=== PATIENT | female | born 1990 | race African-American/Black ===

== ENCOUNTER 2016-07-29 18:16 | Emergency (ER) | payer MEDICAID ==
[~2016-07-29] VITALS: Ht 170.2 cm; Wt 84.0 kg
[2016-07-29 21:40] VITALS: BP 126/79
== END 2016-07-29 21:50 | disposition home or self-care (01) ==
LOC: ER 18:17
DX: J30.81 Allergic rhinitis due to animal (cat) (dog) hair and dander (principal); L25.9 Unspecified contact dermatitis, unspecified cause; J45.909 Unspecified asthma, uncomplicated; I10 Essential (primary) hypertension; F17.210 Nicotine dependence, cigarettes, uncomplicated; Z88.5 Allergy status to narcotic agent
CPT/HCPCS: 99283

== ENCOUNTER 2017-06-16 07:49 | Emergency (ER) | payer MEDICAID ==
[~2017-06-16] VITALS: Ht 172.7 cm; Wt 82.0 kg
[2017-06-16] MEDS ORDERED: KETOROLAC 30MG/ML VIAL IV STA (09:12)
[2017-06-16] MEDS ORDERED: ONDANSETRON HCL 4MG/2ML VIAL IV STA (09:12)
[2017-06-16] MEDS ORDERED: SODIUM CHLORIDE 0.9% 1,000 ML IV ONE (09:12)
[2017-06-16 10:09] LABS: KETONES URINE NEGATIVE (NEGATIVE); LEUKOCYTE ESTERASE URINE 3+ (NEGATIVE); NITRITE URINE NEGATIVE (NEGATIVE); OCCULT BLOOD URINE 1+ (NEGATIVE); PROTEIN URINE 1+ (NEGATIVE); SPECIFIC GRAVITY URINE 1.011 (1.005-1.030)
[2017-06-16 10:10] LABS: COLOR URINE YELLOW (YELLOW)
[2017-06-16 10:11] LABS: CLARITY URINE HAZY (CLEAR)
[2017-06-16 11:09] LABS: BASOPHILS % 0.3 % (0.0-2.0); EOSINOPHILS % 0.4 % (0.0-5.0); HEMATOCRIT. 36.5 % (36.0-48.0); HEMOGLOBIN. 12.6 g/dL (12.0-16.0); LYMPHOCYTES % 8.2 % (20.0-50.0); MEAN CORPUSCULAR VOLUME 75.3 fL (81.0-99.0); MEAN PLATELET VOLUME 10.1 fl (7.4-10.4); MONOCYTES % 9.1 % (2.0-8.0); PLATELET 177 x1000/uL (130-400); RED BLOOD CELL COUNT 4.85 mill/uL (4.2-5.4); RED CELL DISTRIBUTION WIDTH 14.1 % (11.6-14.6)
[2017-06-16 11:12] LABS: PROTHROMBIN TIME 10.3 sec (9.4-11.6)
[2017-06-16 11:21] LABS: CHLORIDE 107 mEq/L (98-107)
[2017-06-16] MEDS ORDERED: METRONIDAZOLE 500MG TABLET PO ONE (13:30)
[2017-06-16] MEDS ORDERED: CEFTRIAXONE SODIUM 250 MG/VIAL IM ONE (13:30)
[2017-06-16] MEDS ORDERED: DOXYCYCLINE HYCLATE 100MG CAPSULE PO ONE (13:30)
[2017-06-16 13:50] VITALS: BP 130/85
[2017-06-16] MEDS ORDERED: IOHEXOL-300 100 ML BOTTLE ONE (14:57)
[2017-06-19 04:17] LABS: CHLAMYDIA TRACHOMATIS NAA Positive (Negative); NEISSERIA GONORRHOEAE NAA Negative (Negative)
== END 2017-06-16 13:54 | disposition home or self-care (01) ==
LOC: ER 08:14
DX: N73.9 Female pelvic inflammatory disease, unspecified (principal); Z20.2 Contact with and (suspected) exposure to infections with a predominantly sexual mode of transmission; R11.2 Nausea with vomiting, unspecified; K80.20 Calculus of gallbladder without cholecystitis without obstruction; J45.909 Unspecified asthma, uncomplicated; I10 Essential (primary) hypertension; Z88.5 Allergy status to narcotic agent
CPT/HCPCS: 36415; 74177; 80053; 81001; 81025; 83690; 85025; 85610; 87077; 87086; 87186; 87210; 87491; 87591; 96361; 96372; 96374; 96375; 99285; J0696; J1885; J2405; J7030; Q9967; Z7610

== ENCOUNTER 2018-10-19 17:02 | Emergency (ER) | payer MEDICAID, OTHER ==
[~2018-10-19] VITALS: Ht 170.2 cm; Wt 96.0 kg
[2018-10-19] MEDS ORDERED: SODIUM CHLORIDE 0.9% 1,000 ML IV ONE (17:46)
[2018-10-19 17:57] LABS: CLARITY URINE CLOUDY (CLEAR); COLOR URINE YELLOW (YELLOW); KETONES URINE NEGATIVE (NEGATIVE); LEUKOCYTE ESTERASE URINE 1+ (NEGATIVE); NITRITE URINE NEGATIVE (NEGATIVE); OCCULT BLOOD URINE NEGATIVE (NEGATIVE); PROTEIN URINE NEGATIVE (NEGATIVE); SPECIFIC GRAVITY URINE 1.021 (1.005-1.030); UROBILINOGEN URINE 0.2 E.U./dL (0.2-1.0)
[2018-10-19 18:13] LABS: CHLORIDE 108 mEq/L (98-107); PARTIAL THROMBOPLASTIN TIME 23.6 sec (23.4-31.0); PROTHROMBIN TIME 10.5 sec (9.6-11.0)
[2018-10-19 18:14] LABS: BASOPHILS % 0.6 % (0.0-2.0); EOSINOPHILS % 4.8 % (0.0-5.0); HEMATOCRIT. 36.6 % (36.0-48.0); HEMOGLOBIN. 12.9 g/dL (12.0-16.0); LYMPHOCYTES % 38.5 % (20.0-50.0); MEAN CORPUSCULAR HEMOGLOBIN 27.1 pg (28.0-32.0); MEAN PLATELET VOLUME 9.8 fl (7.4-10.4); MONOCYTES % 6.9 % (2.0-8.0); NEUTROPHILS % 49.2 % (40.0-76.0); PLATELET 214 x1000/uL (130-400); RED BLOOD CELL COUNT 4.75 mill/uL (4.2-5.4)
[2018-10-19 18:15] LABS: HCG SCREEN NEGATIVE
[2018-10-19 18:24] LABS: B-HCG QUANTITATIVE < 1 mIU/mL (<3)
[2018-10-19] MEDS ORDERED: KETOROLAC 30MG/ML VIAL IV ONE (19:15)
[2018-10-19 21:39] VITALS: BP 132/82
[2018-10-19] MEDS ORDERED: IOHEXOL-300 100 ML BOTTLE ONE (21:54)
[2018-10-20 09:36] LABS: *AMPHETAMINES SCREEN URINE NEGATIVE (NEGATIVE); *BARBITURATES SCREEN URINE NEGATIVE (NEGATIVE); *BENZODIAZEPINES SCREEN URINE NEGATIVE (NEGATIVE); *COCAINE SCREEN URINE NEGATIVE (NEGATIVE); METHADONE URINE SCREEN NEGATIVE (NEGATIVE); OPIATES URINE SCREEN NEGATIVE (NEGATIVE); PHENCYCLIDINE URINE SCREEN NEGATIVE (NEGATIVE)
[2018-10-20 09:39] LABS: CANNABINOID URINE SCREEN PRESUMTIVE POSITIVE (NEGATIVE)
== END 2018-10-19 22:07 | disposition home or self-care (01) ==
LOC: ER 17:02
DX: R10.9 Unspecified abdominal pain (principal); I10 Essential (primary) hypertension; R31.9 Hematuria, unspecified; R39.15 Urgency of urination; R30.0 Dysuria; J45.909 Unspecified asthma, uncomplicated; R56.9 Unspecified convulsions
CPT/HCPCS: 36415; 74177; 76830; 76856; 80053; 80305; 81003; 81025; 84702; 84703; 85025; 85610; 85730; 86850; 86900; 86901; 99284; J7030; Q9967; Z7610

== ENCOUNTER 2018-11-11 12:53 | Emergency (ER) | payer OTHER ==
[~2018-11-11] VITALS: Ht 170.2 cm; Wt 86.0 kg
[2018-11-11] MEDS ORDERED: BACLOFEN 10MG TABLET PO ONE (15:30)
[2018-11-11] MEDS ORDERED: KETOROLAC 60MG/2ML VIAL IM ONE (15:30)
[2018-11-11] MEDS ORDERED: ACETAMINOPHEN 325MG TABLET PO ONE (15:30)
[2018-11-11 16:30] VITALS: BP 139/92
== END 2018-11-11 17:10 | disposition home or self-care (01) ==
LOC: ER 12:53
DX: M54.5 Low back pain (principal); J45.909 Unspecified asthma, uncomplicated; I10 Essential (primary) hypertension; G40.909 Epilepsy, unspecified, not intractable, without status epilepticus; Z98.890 Other specified postprocedural states; Z88.5 Allergy status to narcotic agent
CPT/HCPCS: 81025; 96372; 99283; J1885

== ENCOUNTER 2020-04-25 11:07 | Emergency (ER) | payer MEDICAID, OTHER ==
[~2020-04-25] VITALS: Ht 170.2 cm; Wt 145.0 kg
[2020-04-25] MEDS ORDERED: OXYMETAZOLINE HCL NASAL SPRAY 15ML BOTHNSTRLS SCH (12:15)
[2020-04-25 13:15] VITALS: BP 131/89
== END 2020-04-25 13:36 | disposition home or self-care (01) ==
LOC: ER 11:07
DX: J02.9 Acute pharyngitis, unspecified (principal); J34.89 Other specified disorders of nose and nasal sinuses; R09.82 Postnasal drip; I10 Essential (primary) hypertension; G40.909 Epilepsy, unspecified, not intractable, without status epilepticus; J45.909 Unspecified asthma, uncomplicated; Z88.5 Allergy status to narcotic agent
CPT/HCPCS: 71045; 93005; 99283